=== PATIENT | female | born 1990 | race Caucasian/White ===

== ENCOUNTER 2017-05-13 12:17 | Observation (INO) | payer SELFPAY ==
[~2017-05-13] VITALS: Ht 154.9 cm; Wt 57.0 kg
[2017-05-13] VITALS (11 sets, daily range): BP systolic 92–190; BP diastolic 57–100; PULSE 63–118; RESP 15–18; TEMP 97.4–98.8; O2SAT 95–99
[2017-05-13] MEDS ORDERED: SODIUM CHLOR 0.9% 1000 ML INJ 1,000 ML IV ONE (12:22)
[2017-05-13] MEDS ORDERED: SODIUM CHLORIDE 0.9% FLUSH 10 ML FLUSH IVF PRN (12:30)
[2017-05-13] MEDS ORDERED: NALOXONE HCL 2 MG/2 ML VIAL IM ONE (12:30)
--- NOTE | 2017-05-13 12:34 | PD ---
HPI Chief Complaint: OD/ Ingestion Time Seen by Provider: 12:22 Travel History International Travel<30 days: No Contact w/Intl Traveler<30days: No Traveled to known affect area: No History of Present Illness HPI Young white female patient presents to the ER today brought in by friends, unresponsive, eag-[id number]-atab was initiated in triage, and sternal rubbed. She awoke after sternal rub and admits that she took fentanyl today. She is still fairly disoriented. Narcan was given in the ER IM. Modifying Factors: None Associated Signs & Symptoms: Opiate overdose Risk Factors: None PFSH Past Medical History ?: Not LMP: 05/11/17 Social History Tobacco Use: No Allergies-Medications (Allergen,Severity, Reaction): Coded Allergies: No Known Allergies (Unverified , 05/13/17) Reported Meds & Prescriptions Reported Meds & Active Scripts Active Narcan Nasal [place] (Naloxone HCl) 4 Mg/Act [place] 4 Mg NASAL ONCE PRN Contents of 1 nasal spray as a single dose; may repeat every 2 to 3 minutes in alternating nostrils until medical assistance becomes available. Review of Systems ROS Limitations: Intoxication, Altered Mental Status Physical Exam Narrative GENERAL: Well-developed young white female patient who is disoriented, but awakeable and able to answer questions after sternal rub. SKIN: Focused skin assessment warm/dry. HEAD: Atraumatic. Normocephalic. EYES: Pupils are small, equal and round. No scleral icterus. No injection or drainage. ENT: No nasal bleeding or discharge. Mucous membranes pink and moist. NECK: Trachea midline. No JVD. CARDIOVASCULAR: Regular rate and rhythm. No murmur appreciated. RESPIRATORY: No accessory muscle use. Clear to auscultation. Breath sounds equal bilaterally. GASTROINTESTINAL: Abdomen soft, non-tender, nondistended. Hepatic and splenic margins not palpable. MUSCULOSKELETAL: No obvious deformities. No clubbing. No cyanosis. No edema. NEUROLOGICAL: Awake and alert. No obvious cranial nerve deficits. Motor grossly within normal limits. Normal speech. PSYCHIATRIC: Appropriate mood and affect; insight and judgment normal. Data Data Last Documented VS Vital Signs Date Time Temp Pulse Resp B/P Pulse Ox O2 Delivery O2 Flow Rate FiO2 05/13/17 15:00 78 16 108/62 99 Room Air 05/13/17 12:20 97.4 Orders Electrocardiogram (05/13/17 12:22) Complete Blood Count With Diff (05/13/17 12:22) Comprehensive Metabolic Panel (05/13/17 12:22) Urinalysis - C+S If Indicated (05/13/17 12:22) Iv Access Insert/Monitor (05/13/17 12:22) Cath For Specimen (05/13/17 12:22) Ecg Monitoring (05/13/17 12:22) Oximetry (05/13/17 12:22) Naloxone Inj (Narcan Inj) (05/13/17 12:30) Sodium Chloride 0.9% Flush (Ns Flush) (05/13/17 12:30) Sodium Chlor 0.9% 1000 Ml Inj (Ns 1000 M (05/13/17 12:22) Drug Screen, Random Urine (05/13/17 12:22) Alcohol (Ethanol) (05/13/17 12:22) Salicylates (Aspirin) (05/13/17 12:40) Tylenol (Acetaminophen) (05/13/17 12:40) Urine Culture (05/13/17 13:00) Labs Laboratory Tests Test 05/13/17 05/13/17 12:30 13:00 White Blood Count 8.4 TH/MM3 Red Blood Count 4.69 MIL/MM3 Hemoglobin 14.5 GM/DL Hematocrit 42.6 % Mean Corpuscular Volume 90.7 FL Mean Corpuscular Hemoglobin 30.9 PG Mean Corpuscular Hemoglobin 34.1 % Concent Red Cell Distribution Width 13.0 % Platelet Count 197 TH/MM3 Mean Platelet Volume 8.4 FL Neutrophils (%) (Auto) 58.9 % Lymphocytes (%) (Auto) 29.6 % Monocytes (%) (Auto) 6.9 % Eosinophils (%) (Auto) 3.9 % Basophils (%) (Auto) 0.7 % Neutrophils # (Auto) 5.0 TH/MM3 Lymphocytes # (Auto) 2.5 TH/MM3 Monocytes # (Auto) 0.6 TH/MM3 Eosinophils # (Auto) 0.3 TH/MM3 Basophils # (Auto) 0.1 TH/MM3 CBC Comment DIFF FINAL Differential Comment Sodium Level 137 MEQ/L Potassium Level 3.4 MEQ/L Chloride Level 100 MEQ/L Carbon Dioxide Level 27.9 MEQ/L Anion Gap 9 MEQ/L Blood Urea Nitrogen 9 MG/DL Creatinine 0.92 MG/DL Estimat Glomerular Filtration 53 ML/MIN Rate Random Glucose 91 MG/DL Calcium Level 9.3 MG/DL Total Bilirubin 0.7 MG/DL Aspartate Amino Transf 49 U/L (AST/SGOT) Alanine Aminotransferase 98 U/L (ALT/SGPT) Alkaline Phosphatase 102 U/L Total Protein 8.7 GM/DL Albumin 4.3 GM/DL Salicylates Level LESS THAN 1.7 MG/DL Acetaminophen Level LESS THAN 2.0 MCG/ML Ethyl Alcohol Level LESS THAN 3 MG/DL Urine Color BEN Urine Turbidity HAZY Urine pH 5.5 Urine Specific [place] 1.033 Urine Protein 30 mg/dL Urine Glucose (UA) NEG mg/dL Urine Ketones NEG mg/dL Urine Occult Blood SMALL Urine Nitrite NEG Urine Bilirubin NEG Urine Urobilinogen 2.0 MG/DL Urine Leukocyte Esterase MOD Urine RBC 6 /hpf Urine WBC 18 /hpf Urine Squamous Epithelial 3 /hpf Cells Urine Bacteria FEW /hpf Urine Hyaline Casts 2 /lpf Urine Mucus MANY /lpf Microscopic Urinalysis Comment CULTURE INDICATED Urine Opiates Screen POS Urine Barbiturates Screen NEG Urine Amphetamines Screen POS Urine Benzodiazepines Screen POS Urine Cocaine Screen NEG Urine Cannabinoids Screen NEG MDM Medical Decision Making Medical Screen Exam Complete: Yes Emergency Medical Condition: Yes Medical Record Reviewed: Yes Interpretation(s) Laboratory Tests Test 05/13/17 05/13/17 12:30 13:00 Potassium Level 3.4 MEQ/L (3.5-5.1) Estimat Glomerular Filtration 53 ML/MIN (>89) Rate Aspartate Amino Transf 49 U/L (15-37) (AST/SGOT) Alanine Aminotransferase 98 U/L (10-53) (ALT/SGPT) Total Protein 8.7 GM/DL (6.4-8.2) Salicylates Level LESS THAN 1.7 MG/DL (2.8-20.0) Acetaminophen Level LESS THAN 2.0 MCG/ML (10.0-30.0) Urine Color BEN (YELLW/STRAW) Urine Turbidity HAZY (CLEAR) Urine Protein 30 mg/dL (NEG-TRACE) Urine Occult Blood SMALL (NEG) Urine Leukocyte Esterase MOD (NEG) Urine RBC 6 /hpf (0-3) Urine WBC 18 /hpf (0-5) Urine Bacteria FEW /hpf (NONE) Urine Mucus MANY /lpf (OCC) Urine Opiates Screen POS (NEG) Urine Amphetamines Screen POS (NEG) Urine Benzodiazepines Screen POS (NEG) Differential Diagnosis Opiate overdoserule out coingestions versus metabolic issues Narrative Course After Narcan, patient was awake, alert, and oriented. I have explained to her what had happened to her that she almost , was in respiratory failure. In addition, I have explained to her that she was given a reversal medication, no LOC sound, which is currently reversing the overdose but that the medication will run out within an hour and she will likely go back and overdose. At this point, I have recommended that she be admitted as an observation for further treatment. However, patient states she knows her own body, does not think that she will overdose again, and states she will not go and take anymore medication or drugs. She also states that she had just gotten out of assisted and has a regular job and does not want to be admitted. I have explained to her that she simply needs to be observed for the day to make sure that the opiates of gone out of her system. I have talked her about the fact that her chances of going out and overdosing even without taking further drugs is fairly high. Patient states understanding but is still refusing to stay to be admitted. At this point, if she wants to leave, she will be leaving AGAINST MEDICAL ADVICE. She is awake and oriented, I have explained to her the dangers of leaving including and she has stated understanding. AMA: The risks of leaving against medical advice without further evaluation treatment were discussed with the patient. These risks include cardiac dysfunction, cardiac dysrhythmia, possible heart attack, possible stroke or . The patient indicated understanding of these risks and appeared to have the capacity to make this decision. However, on reevaluation at 3:42 PM, patient is quite lethargic again and this time when I woke her up, she is willing to stay. Case is discussed with Dr. Hoffmann for admission. Diagnosis Primary Impression: Opiate overdose Admitting Information Admitting Physician Requests: Admit Scripts Naloxone Nasal [place] (Narcan Nasal [place])4 Mg/Act Spray4 Mg NASAL ONCE PRN ( OPIOID OVERDOSE) #1 SPRAY Ref 0 Contents of 1 nasal spray as a single dose; may repeat every 2 to 3 minutes in alternating nostrils until medical assistance becomes available. Prov:Rani Lyon MD 05/13/17 Rani Lyon MD May 13, 2017 12:34
[2017-05-13 13:12] LABS: BASOPHIL # 0.1 TH/MM3 (0-0.2); BASOPHIL % 0.7 % (0.0-2.0); EOSINOPHIL # 0.3 TH/MM3 (0-0.4); EOSINOPHIL % 3.9 % (0.0-4.0); HEMATOCRIT 42.6 % (35.0-46.0); HEMO FLAGS DIFF FINAL; LYMPH % 29.6 % (9.0-44.0); LYMPHOCYTE # 2.5 TH/MM3 (1.0-4.8); MEAN CELL VOLUME 90.7 FL (80.0-100.0); MEAN CORPUSCULAR HEMOGLOBIN 30.9 PG (27.0-34.0); MEAN CORPUSCULAR HGB CONC 34.1 % (32.0-36.0); MONO % 6.9 % (0.0-8.0); NEUT % 58.9 % (16.0-70.0); PLATELET COUNT 197 TH/MM3 (150-450); RED BLOOD COUNT 4.69 MIL/MM3 (4.00-5.30); WHITE BLOOD COUNT 8.4 TH/MM3 (4.0-11.0)
[2017-05-13 13:36] LABS: ALT (GPT) 98 U/L (10-53); ANION GAP 9 MEQ/L (5-15); AST (GOT) 49 U/L (15-37); BICARBONATE 27.9 MEQ/L (21.0-32.0); BLOOD UREA NITROGEN 9 MG/DL (7-18); CHLORIDE 100 MEQ/L (98-107); GLOMERULAR FILTRATION RATE 53 ML/MIN (>89); POTASSIUM 3.4 MEQ/L (3.5-5.1); SODIUM (NA) 137 MEQ/L (136-145)
[2017-05-13 13:38] LABS: ALKALINE PHOSPHATASE 102 U/L (45-117); TOTAL BILIRUBIN ADULT 0.7 MG/DL (0.2-1.0)
[2017-05-13 13:39] LABS: ALCOHOL LESS THAN 3 MG/DL (0-5)
[2017-05-13 13:42] LABS: BACTERIA, URINE FEW /hpf; BLOOD, URINE SMALL (NEG); COMMENT (UR) CULTURE INDICATED; CULTURE IF INDICATED CULTURE INDICATED; GLUCOSE,URINE NEG (NEG); HYALINE CAST, URINE 2 /lpf (RARE); KETONE, URINE NEG (NEG); MUCUS URINE MANY /lpf (OCC); NITRITE,URINE NEG (NEG); PH, URINE 5.5 (5.0-8.5); SQUAMOUS EPITHELIAL CELL URINE 3 /hpf (0-5)
[2017-05-13 13:48] LABS: URINE COLOR AMBER (YELLW/STRAW)
[2017-05-13] MEDS ORDERED: NALO1SPR NASAL (14:29)
[2017-05-13] MEDS ORDERED: NALOXONE HCL 0.4 MG/ML AMP IV PRN (16:15)
[2017-05-13] MEDS: NS + KCL 20 MEQ INJ 1,000 ML IV SCH (16:52)
--- NOTE | 2017-05-13 16:52 | HHI.HP ---
[facility]ician No Primary Care Physician Admission Diagnosis opiate overdose Diagnoses: (1) Opiate overdose (2) UTI (urinary tract infection) (3) Polysubstance abuse Chief Complaint: overdose Travel History International Travel<30 Days: No Contact w/Intl Traveler <30 Da: No Traveled to Known Affected Are: No History of Present Illness Patient seen and examined in the presence of the ER nurse. The patient is a young female who presented to the emergency department as a May Smith. She was brought in by friends and was unresponsive. Back valve mask was initiated in triage. Patient received sternal rub and awoke. She admitted using fentanyl today. Her first name is apparently Violet. She remains confused and sedated. She has received Narcan as well. She initially responded well to the Narcan, but has now become somnolent again. She denies shortness of breath. Review of Systems ROS Limitations: Clinical Condition, Intoxication, Altered Mental Status Constitutional: DENIES: Fever, Chills, Night Sweats Eyes: DENIES: Blurred vision, Vision loss Ears, nose, mouth, throat: DENIES: Hearing loss Respiratory: DENIES: Cough, Wheezing, Sputum production, Shortness of breath Cardiovascular: DENIES: Chest pain, Palpitations, Dyspnea on Exertion, Lower Extremity Edema Gastrointestinal: DENIES: Abdominal pain, Constipation, Diarrhea, Nausea, Vomiting Genitourinary: DENIES: Urinary frequency, Urinary incontinence, Urgency, Hematuria, Dysuria, Nocturia Musculoskeletal: DENIES: Joint pain, Muscle aches Integumentary: DENIES: Pruritus, Rash Hematologic/lymphatic: DENIES: Bruising Neurologic: DENIES: Headache Past Family Social History Past Medical History Denies Past Surgical History Denies Reported Medications None Allergies: Coded Allergies: No Known Allergies (Unverified , 05/13/17) Family History Patient denies significant family history. Social History Patient admitted to use of fentanyl today. Denied tobacco use. Urine drug screen positive for opiates, amphetamines, and benzodiazepines. Physical Exam Vital Signs Vital Signs Date Time Temp Pulse Resp B/P Pulse Ox O2 Delivery O2 Flow Rate FiO2 05/13/17 15:00 78 16 108/62 99 Room Air 05/13/17 14:00 74 16 104/64 99 Room Air 05/13/17 13:00 84 16 108/68 99 Room Air 05/13/17 12:20 97.4 118 16 115/70 99 05/13/17 12:20 99 Room Air 05/13/17 12:20 Room Air Physical Exam GENERAL: Well-nourished, well-developed female in no acute distress. HEENT: Normocephalic, atraumatic. Pupils equal, round and reactive. Extraocular movements intact. No scleral icterus. No injection or drainage. Oropharynx is clear. Mucous membranes are moist. CARDIOVASCULAR: Regular rate and rhythm without murmurs, gallops, or rubs. RESPIRATORY: Clear to auscultation. No wheezes, rales, or rhonchi. Breathing is non-labored. GASTROINTESTINAL: Abdomen soft, non-tender, nondistended. EXTREMITIES: No lower extremity edema. No calf tenderness. PSYCH: Somnolent. Laboratory Laboratory Tests Test 05/13/17 05/13/17 12:30 13:00 White Blood Count 8.4 Red Blood Count 4.69 Hemoglobin 14.5 Hematocrit 42.6 Mean Corpuscular Volume 90.7 Mean Corpuscular Hemoglobin 30.9 Mean Corpuscular Hemoglobin 34.1 Concent Red Cell Distribution Width 13.0 Platelet Count 197 Mean Platelet Volume 8.4 Neutrophils (%) (Auto) 58.9 Lymphocytes (%) (Auto) 29.6 Monocytes (%) (Auto) 6.9 Eosinophils (%) (Auto) 3.9 Basophils (%) (Auto) 0.7 Neutrophils # (Auto) 5.0 Lymphocytes # (Auto) 2.5 Monocytes # (Auto) 0.6 Eosinophils # (Auto) 0.3 Basophils # (Auto) 0.1 CBC Comment DIFF FINAL Differential Comment Sodium Level 137 Potassium Level 3.4 Chloride Level 100 Carbon Dioxide Level 27.9 Anion Gap 9 Blood Urea Nitrogen 9 Creatinine 0.92 Estimat Glomerular Filtration 53 Rate Random Glucose 91 Calcium Level 9.3 Total Bilirubin 0.7 Aspartate Amino Transf 49 (AST/SGOT) Alanine Aminotransferase 98 (ALT/SGPT) Alkaline Phosphatase 102 Total Protein 8.7 Albumin 4.3 Salicylates Level LESS THAN 1.7 Acetaminophen Level LESS THAN 2.0 Ethyl Alcohol Level LESS THAN 3 Urine Color BEN Urine Turbidity HAZY Urine pH 5.5 Urine Specific [place] 1.033 Urine Protein 30 Urine Glucose (UA) NEG Urine Ketones NEG Urine Occult Blood SMALL Urine Nitrite NEG Urine Bilirubin NEG Urine Urobilinogen 2.0 Urine Leukocyte Esterase MOD Urine RBC 6 Urine WBC 18 Urine Squamous Epithelial 3 Cells Urine Bacteria FEW Urine Hyaline Casts 2 Urine Mucus MANY Microscopic Urinalysis Comment CULTURE INDICATED Urine Opiates Screen POS Urine Barbiturates Screen NEG Urine Amphetamines Screen POS Urine Benzodiazepines Screen POS Urine Cocaine Screen NEG Urine Cannabinoids Screen NEG Date/Time Procedure Status Source Growth 05/13/17 13:00 Urine Culture Received Urine Catheterized Urine Pending Result Diagram: 05/13/17 1230 05/13/17 1230 Assessment and Plan Assessment and Plan 1. Opiate overdose: Patient responded to Narcan in the ER. She admitted to using fentanyl today. Urine drug screen positive for opiates, amphetamines, benzodiazepines. Monitor on telemetry. 2. Respiratory distress: Secondary to overdose. Patient presented requiring bag valve mask. Now tolerating room air. 3. UTI: Urine culture is pending. Will treat with Bactrim. 4. DVT prophylaxis: LESLY [place]. Flash Hoffmann MD May 13, 2017 16:52
[2017-05-13] MEDS ORDERED: ONDANSETRON HCL 4 MG/2 ML VIAL IVP PRN (17:00)
[2017-05-13] MEDS ORDERED: cloNIDine HCL 0.1 MG TAB PO ONE (22:45)
[2017-05-13] MEDS: SULFAMETHOXAZOLE-TRIMETHOPRIM DS 800-160 MG TAB PO SCH (23:09)
[2017-05-14 02:25] VITALS: PULSE 73
[2017-05-14] MEDS: NS + KCL 20 MEQ INJ 1,000 ML IV SCH ×2 (02:43→12:04)
[2017-05-14 04:05] VITALS: BP 86/53; PULSE 66; RESP 18; TEMP 98.9; O2SAT 98
[2017-05-14 07:00] VITALS: PULSE 75
[2017-05-14 08:13] VITALS: BP 89/55; PULSE 72; RESP 16; TEMP 97.8; O2SAT 99
[2017-05-14 08:19] VITALS: O2SAT 97
--- NOTE | 2017-05-14 09:52 | HHI.PR ---
Subjective Remarks Patient seen in presence of the nurse. Follow-up opiate overdose. The patient awakens to verbal stimuli, but is not cooperative with examination. She answers questions by nodding her head, but does not respond verbally. She denies dyspnea , chest pain. Objective Vitals Vital Signs Date Time Temp Pulse Resp B/P Pulse Ox O2 Delivery O2 Flow Rate FiO2 05/14/17 08:13 97.8 72 16 89/55 99 05/14/17 04:05 98.9 66 18 86/53 98 05/14/17 02:25 73 05/13/17 23:20 95/68 Automatic Cuff 05/13/17 22:45 97.9 63 15 94/57 98 05/13/17 22:00 181/81 Automatic Cuff 05/13/17 21:07 99 05/13/17 17:44 74 16 92/60 99 05/13/17 16:00 77 16 98/64 99 Room Air 05/13/17 15:00 78 16 108/62 99 Room Air 05/13/17 14:00 74 16 104/64 99 Room Air 05/13/17 13:00 84 16 108/68 99 Room Air 05/13/17 12:20 97.4 118 16 115/70 99 05/13/17 12:20 99 Room Air 05/13/17 12:20 Room Air I/O 05/13/17 05/13/17 05/13/17 05/14/17 05/14/17 05/14/17 07:00 15:00 23:00 07:00 15:00 23:00 Intake Total 360 ml 1367 ml Output Total 200 ml Balance 360 ml -200 ml 1367 ml Intake Oral 360 ml IV Total 1367 ml Output Urine Total 200 ml # Voids 1 Result Diagram: 05/13/17 1230 05/13/17 1230 Objective Remarks General: No acute distress. Heart: Regular rate and rhythm. No murmur. Lungs: Clear to auscultation bilaterally. No wheezes, rales, or rhonchi. Breathing is nonlabored. Abdomen: Soft, nontender, nondistended. Extremities: No lower extremity edema. Psych: Alert and oriented. Procedures None Urinary Catheter: No Vascular Central Line Catheter: No A/P Problem List: (1) Opiate overdose ICD Code: T40.601A Status: Acute (2) UTI (urinary tract infection) ICD Code: N39.0 Status: Acute (3) Polysubstance abuse ICD Code: F19.10 Status: Chronic Assessment and Plan 1. Opiate overdose: Patient responded to Narcan in the ER. She admitted to using fentanyl. Urine drug screen positive for opiates, amphetamines, benzodiazepines. Monitor on telemetry. 2. Respiratory distress: Secondary to overdose. Resolved. Patient presented requiring bag valve mask. Now tolerating room air. 3. UTI: Urine culture is pending. Continue Bactrim. 4. DVT prophylaxis: SCDs, LESLY [place]. 5. Hypotension: Patient likely has a low baseline blood pressure. Continue IV fluids and monitor. 6. Elevated LFTs: Repeat labs are pending. 7. Mild hypokalemia: Labs are pending this morning. Flash Hoffmann MD May 14, 2017 09:52
[2017-05-14] MEDS: SULFAMETHOXAZOLE-TRIMETHOPRIM DS 800-160 MG TAB PO SCH (10:17)
[2017-05-14 12:35] VITALS: BP 104/61; PULSE 86; RESP 16; TEMP 98; O2SAT 100
[2017-05-14 14:07] LABS: ALKALINE PHOSPHATASE 75 U/L (45-117); ALT (GPT) 62 U/L (10-53); ANION GAP 7 MEQ/L (5-15); AST (GOT) 40 U/L (15-37); BICARBONATE 23.3 MEQ/L (21.0-32.0); CHLORIDE 111 MEQ/L (98-107); GLOMERULAR FILTRATION RATE 122 ML/MIN (>89); SODIUM (NA) 141 MEQ/L (136-145); TOTAL BILIRUBIN ADULT 0.3 MG/DL (0.2-1.0)
[2017-05-14 14:09] LABS: BLOOD UREA NITROGEN 6 MG/DL (7-18); POTASSIUM 5.2 MEQ/L (3.5-5.1)
[2017-05-14] MEDS ORDERED: SODIUM CHLOR 0.9% 1000 ML INJ 1,000 ML IV SCH (16:00)
--- NOTE | 2017-05-14 17:08 | EKG ---
Date Performed: 05/13/2017 Time Performed: 12:34:24 PTAGE: 89 years EKG: SINUS TACHYCARDIA WITH SHORT [place] INTERVAL ABNORMAL RHYTHM ECG NO PREVIOUS TRACING DOCTOR: Gonzalo Li Interpretating Date/Time 05/14/2017 17:05:15
== END 2017-05-14 17:05 | disposition left against medical advice (07) ==
LOC: EDSEX → NEPC 12:17 → NEDA 16:08 → EDBD 16:08 → NEPHCDU 19:01
PROVIDERS: ADMIT Family Medicine; ATTEND Family Medicine
DX: T40.2X1A Poisoning by other opioids, accidental (unintentional), initial encounter (principal); N39.0 Urinary tract infection, site not specified; J96.90 Respiratory failure, unspecified, unspecified whether with hypoxia or hypercapnia; R40.0 Somnolence; R41.0 Disorientation, unspecified; R94.31 Abnormal electrocardiogram [ECG] [EKG]; R00.0 Tachycardia, unspecified; F19.10 Other psychoactive substance abuse, uncomplicated; I95.9 Hypotension, unspecified; R79.89 Other specified abnormal findings of blood chemistry; E87.6 Hypokalemia; X58.XXXA Exposure to other specified factors, initial encounter
CPT/HCPCS: 80053; 80307; 81001; 82948; 85025; 87077; 87086; 87186; 93005; 96365; 96366; 96375; 99285; G0378; J2310; J3480; J7030; P9612